=== PATIENT | female | born 1995 | race Caucasian/White ===

== ENCOUNTER 2018-04-22 17:23 | Emergency (ER) | payer SELFPAY ==
[~2018-04-22] VITALS: Ht 157.5 cm; Wt 70.0 kg
[2018-04-22] MEDS ORDERED: TETANUS, DIPHTHERIA, PERTUSSIS VAC/PF 0.5ML (>7YR OLD) IM ONE (17:45)
[2018-04-22] MEDS ORDERED: BACITRACIN ZINC OINT UDPKT TOP ONE (17:45)
[2018-04-22] MEDS ORDERED: LIDOCAINE HCL 1% 20ML VIAL (Pyxis) INJ MC ONE (17:45)
[2018-04-22 18:48] LABS: CLARITY URINE CLOUDY (CLEAR); COLOR URINE DARK YELLOW (YELLOW); KETONES URINE 1+ (NEGATIVE); LEUKOCYTE ESTERASE URINE NEGATIVE (NEGATIVE); NITRITE URINE NEGATIVE (NEGATIVE); OCCULT BLOOD URINE NEGATIVE (NEGATIVE); PROTEIN URINE TRACE (NEGATIVE); SPECIFIC GRAVITY URINE 1.038 (1.005-1.030)
[2018-04-22 21:30] VITALS: BP 115/63
[2018-04-22] MEDS ORDERED: CEFTRIAXONE SODIUM 250 MG/VIAL IM ONE (22:30)
[2018-04-22] MEDS ORDERED: AZITHROMYCIN 500 MG TABLET PO ONE (22:30)
[2018-04-22] MEDS ORDERED: LIDOCAINE HCL 1% 20ML VIAL (Pyxis) INJ INFIL ONE (22:30)
[2018-04-22] MEDS ORDERED: LIDOCAINE HCL/PF 1% 10 MG/ML 5ML VIAL IJ NR (22:45)
[2018-04-25 14:19] LABS: CHLAMYDIA TRACHOMATIS NAA Negative (Negative); NEISSERIA GONORRHOEAE NAA Negative (Negative)
== END 2018-04-22 22:40 | disposition home or self-care (01) ==
LOC: ER 20:27
DX: S62.305A Unspecified fracture of fourth metacarpal bone, left hand, initial encounter for closed fracture (principal); S63.502A Unspecified sprain of left wrist, initial encounter; S71.112A Laceration without foreign body, left thigh, initial encounter; W25.XXXA Contact with sharp glass, initial encounter; V49.50XA Passenger injured in collision with unspecified motor vehicles in traffic accident, initial encounter; Y93.89 Activity, other specified; Y92.410 Unspecified street and highway as the place of occurrence of the external cause; Z11.3 Encounter for screening for infections with a predominantly sexual mode of transmission; N89.8 Other specified noninflammatory disorders of vagina; Z23 Encounter for immunization
CPT/HCPCS: 12002; 73110; 73552; 81003; 81025; 87210; 87491; 87591; 90471; 90715; 99285; J3490; J0696

== ENCOUNTER 2018-04-23 15:28 | Emergency (ER) | payer SELFPAY ==
[~2018-04-23] VITALS: Ht 157.5 cm; Wt 59.0 kg
[2018-04-23 15:39] VITALS: BP 104/69
== END 2018-04-23 18:01 | disposition home or self-care (01) ==
LOC: ER 17:48
DX: S62.345A Nondisplaced fracture of base of fourth metacarpal bone, left hand, initial encounter for closed fracture (principal); F12.10 Cannabis abuse, uncomplicated; V49.88XA Car occupant (driver) (passenger) injured in other specified transport accidents, initial encounter; Y93.89 Activity, other specified; Y92.89 Other specified places as the place of occurrence of the external cause; Y99.8 Other external cause status
CPT/HCPCS: 29130; 99283

== ENCOUNTER 2024-07-21 08:09 | Emergency (ER) | payer OTHER ==
[~2024-07-21] VITALS: Ht 167.6 cm; Wt 75.0 kg
[2024-07-21 08:11] VITALS: O2SAT 100
[2024-07-21] MEDS: KETOROLAC 30MG/ML VIAL IV ONE (08:27)
[2024-07-21] MEDS: ONDANSETRON 4MG ODT PO ONE (08:28)
[2024-07-21] MEDS: KETOROLAC 30MG/ML VIAL IM STA (08:42)
[2024-07-21 09:44] LABS: CLARITY URINE CLEAR (CLEAR); COLOR URINE YELLOW (YELLOW); GLUCOSE URINE NEGATIVE (NEGATIVE); KETONES URINE 2+ (NEGATIVE); LEUKOCYTE ESTERASE URINE 2+ (NEGATIVE); NITRITE URINE NEGATIVE (NEGATIVE); OCCULT BLOOD URINE TRACE (NEGATIVE); PH URINE 5.5 (4.5-8.0); PROTEIN URINE TRACE (NEGATIVE); SPECIFIC GRAVITY URINE 1.025 (1.005-1.030); UROBILINOGEN URINE 0.2 E.U./dL (0.2-1.0)
[2024-07-21] MEDS ORDERED: P20 MT (09:52)
[2024-07-21] MEDS ORDERED: METR45CR2 TP (09:53)
[2024-07-21 10:07] VITALS: BP 146/88; PULSE 72; RESP 18; TEMP 36.94740; O2SAT 100
[2024-07-21 10:17] LABS: MUCUS URINE 1+ /lpf (< = 2+); SQUAMOUS EPITHELIAL CELL URINE 3+ /lpf (RARE/1+)
[2024-07-21 10:18] LABS: BACTERIA URINE 1+
[2024-07-21 10:20] LABS: RBC URINE 0-2 /hpf (0-2); WBC URINE 0-2 /hpf (0-2)
== END 2024-07-21 10:08 | disposition home or self-care (01) ==
LOC: ER 08:26
DX: J11.1 Influenza due to unidentified influenza virus with other respiratory manifestations (principal); N76.0 Acute vaginitis; F12.90 Cannabis use, unspecified, uncomplicated; Z98.890 Other specified postprocedural states; Z20.822 Contact with and (suspected) exposure to COVID-19
CPT/HCPCS: 81003; 81025; 71045; 96374; 99284; 87426; Q0162; J1885; Z7610